=== PATIENT | male | born 2000 | race Caucasian/White ===

== ENCOUNTER 2021-05-18 20:44 | Emergency (ER) | payer OTHER, SELFPAY ==
--- NOTE | ~2021-05-18 | XR_ITS ---
XR chest 2V DATE: 05/18/2021 22:23 INDICATION: Chest pressure. Headache. TECHNIQUE: PA and lateral views COMPARISON: None FINDINGS: There is mild thoracic dextroscoliosis. No pulmonary infiltrate or consolidation, pleural effusion or pulmonary vascular congestion or pneumo thorax. Normal heart size. No hilar or mediastinal enlargement. IMPRESSION: No active cardiopulmonary disease or Reviewed, dictated and finalized at location A. SPORTATION ENGINEER
[2021-05-18 21:25] VITALS: BP 125/69; PULSE 80; RESP 18; TEMP 37.1; O2SAT 98
--- NOTE | 2021-05-18 21:29 | ECG_ITS ---
Measurements Intervals [place] Rate: 77 P: 76 [place]: 147 QRS: 88 QRSD: 105 T: 62 QT: 353 QTc: 400 Interpretive Statements SINUS RHYTHM WITH SINUS ARRHYTHMIA POSSIBLE LEFT ATRIAL ENLARGEMENT [-0.1mV P WAVE IN V1/V2] INCOMPLETE RIGHT BUNDLE BRANCH BLOCK [90+ ms QRS DURATION, TERMINAL R IN V1/V2, 40+ ms S IN I/aVL/V4/V5/V6] INDETERMINATE AXIS ABNORMAL EKG NO PREVIOUS ECG AVAILABLE FOR COMPARISON Electronically Signed On 05-19-2021 9:05:26 PROCESSING TECHNICIAN by Jim Mesa M.D.
[2021-05-18 21:45] LABS: Basophils Percent Auto 0.3 % (0.2-1.2); Eosinophils Absolute Auto 0.1 K/mm3 (0-0.3); Eosinophils Percent Auto 1.5 % (0-4.4); Hematocrit 42.2 % (42.0-52.0); Hemoglobin 14.9 g/dL (14.0-18.0); Immature Granulocyte Absolute 0.01 K/mm3 (0.00-0.031); Immature Granulocyte Percent A 0.2 % (0-0.5); Lymphocytes Absolute Auto 1.48 K/mm3 (0.9-3.2); Lymphocytes Percent Auto 25.2 % (18.3-44.2); Mean Corpuscular HGB Conc 35.3 g/dl (32-36); Mean Corpuscular Volume 87.9 fl (80-100); Mean Platelet Volume 8.6 fl (7.4-10.4); Monocytes Absolute Auto 0.4 K/mm3 (0.1-0.6); Monocytes Percent Auto 7.3 % (2.6-8.5); Neutrophils Absolute Auto 3.8 K/mm3 (1.3-6.7); Neutrophils Percent Auto 65.5 % (45.5-73.1); Platelet Count Result 296 k/mm3 (150-375); Red Cell Distribution Width 11.4 % (11.5-14.5); White Blood Count 5.9 K/mm3 (4.5-10.0)
[2021-05-18 21:55] LABS: Alanine Aminotransferase 13 U/L (4-50); Alkaline Phosphatase 58 U/L (38-126); Anion Gap 9 mmol/L (8-16); Aspartate Amino Transferase 32 U/L (17-59); Bilirubin,Total 1.1 mg/dL (0.2-1.3); Blood Urea Nitrogen 15 mg/dL (9-20); Calcium 9.1 mg/dL (8.4-10.2); Carbon Dioxide 27 mmol/L (22-30); Chloride 106 mmol/L (98-107); Estimated CRCL calculation 139 ml/min; Estimated Glomerular Filt Rate > 60; Glucose 71 mg/dL (65-110); Lipase 147 U/L (23-300); Sodium 142 mmol/L (137-145)
[2021-05-18 21:56] LABS: INR 1.1; Prothrombin Time 13.6 Seconds (11.1-14.7)
[2021-05-18 21:57] LABS: Partial Thromboplastin Time 33.2 SECONDS (22.3-36.8)
[2021-05-18 22:08] LABS: Troponin I < 0.012 ng/mL (0.000-0.034)
--- NOTE | 2021-05-18 23:10 | ED.GENADULT ---
HPI - General Adult General Chief complaint: Headache Stated complaint: headache Time Seen by Provider: 05/18/21 22:34 Source: patient History of Present Illness HPI narrative: Patient presents with chest pain and headache. Patient ports he was recently tested positive for Covid last week felt he was doing well however the past couple days he noted waves of chest tightness without clear aggravating or alleviating factors. He does not currently have any pain. Denies any associated shortness of breath or cough. Patient also reports headache over this time denies any changes in vision nausea vomiting focal numbness or weakness. Is concern for symptoms so came to the ER for further evaluation. Review of Systems Review of Systems: CONSTITUTIONAL: Denies fever, chills, or sweats. EYES: Denies visual changes, redness, or discharge. ENT: Denies rhinorrhea, congestion, sore throat, or otalgia. CARDIOVASCULAR: Denies palpitations, or edema. RESPIRATORY: Denies cough or dyspnea. GASTROINTESTINAL: Denies abdominal pain, nausea, vomiting, or diarrhea. GENITOURINARY: Denies dysuria or hematuria. SKIN: Denies rash or itching. MUSCULOSKELETAL: Denies back pain, joint pain, or myalgia. NEUROLOGIC: Denies numbness, dizziness, or weakness. PSYCHIATRIC: Denies anxiety or depression. All systems reviewed & are unremarkable except as noted in HPI and below PMFSH Past Medical History Medical History (Updated 05/19/21 @ 00:00 by Nelson Hammer) Patient denies significant medical history Social History Social History (Updated 05/18/21 @ 23:11 by Antwan Ahn MD) Substance use: never Exam Narrative: GENERAL: Well-appearing, well-nourished, and in no acute distress. HEAD: Normocephalic, atraumatic. EYES: PERRLA and EOMI. ENT: Nares clear, no rhinorrhea or epistaxis. Mucous membranes moist. NECK: Supple. No masses. No JVD CHEST: Clear to auscultation. No respiratory distress. No wheezes rales or rhonchi HEART: Regular rate and rhythm. No murmur heard. Normal peripheral pulses. ABDOMEN: Soft, nontender, nondistended, normal active bowel sounds. EXTREMITIES: Normal range of motion. No edema. SKIN: Warm, dry, no rash. NEURO: Cranial nerves II through XII are intact patient has 5 out of 5 strength in all extremities sensation intact to light touch in all extremities alert and oriented x3. PSYCH: Normal mood and affect. Course Reevaluation(s) Reevaluation #1: Patient resting comfortably results and plan reviewed with patient. Patient is comfortable outpatient plan. Date: 05/18/21 Time: 22:42 Vital Signs Vital signs: Vital Signs Temperature 37.1 C 05/18/21 21:25 Pulse Rate 80 05/18/21 21:25 Respiratory Rate 18 05/18/21 21:25 Blood Pressure 125/69 05/18/21 21:25 Pulse Oximetry 98 05/18/21 21:25 Temperature 37.1 C 05/18/21 21:25 Pulse Rate 80 05/18/21 21:25 Respiratory Rate 18 05/18/21 21:25 Blood Pressure 125/69 05/18/21 21:25 Pulse Oximetry 98 05/18/21 21:25 Medical Decision Making MDM Narrative Medical decision making narrative: H&P as above, vss, pt looks clinically well, exam without focal neurological deficits, lungs are clear, labs clinically unremarkable, img clinically unremarkable additional labs/img considered, symptomatic relief available as needed, on reevaluation pt continues to looks clinically well. Symptoms remain of unclear etiology may be related to recent viral infection, dns ACS, dissection, intracranial hemorrhage. plan to tx/monitor as op w/ pcm f/u findings/plan discussed with pt, pt agree/comfortable with plan, return precautions given Vital Signs Vital Signs: Vital Signs Temperature 37.1 C 05/18/21 21:25 Pulse Rate 80 05/18/21 21:25 Respiratory Rate 18 05/18/21 21:25 Blood Pressure 125/69 05/18/21 21:25 Pulse Oximetry 98 05/18/21 21:25 Temperature 37.1 C 05/18/21 21:25 Pulse Rate 80 05/18/21 21:25 Respiratory Rate 18 05/18/21 21:25
== END 2021-05-18 23:30 | disposition home or self-care (01) ==
PROVIDERS: Emergency Provider Emergency Medicine
DX: R51.9 Headache, unspecified (principal); R07.9 Chest pain, unspecified
CPT/HCPCS: 36415; 71046; 80053; 83690; 84484; 85025; 85610; 85730; 93005; 99284